=== PATIENT | female | born 1980 | race Caucasian/White ===

== ENCOUNTER 2018-04-13 08:08 | Emergency (ER) | payer BC, OTHER ==
[~2018-04-13] VITALS: Ht 160 cm; Wt 65.8 kg
[~2018-04-13 08:08] MED LIST: CIPROFLOXACIN500 MG PO; VICODIN ES 7501 TAB PO
[2018-04-13 08:09] VITALS: BP 115/76
[2018-04-13] MEDS ORDERED: ZITHROMAX250 MG PO (08:35)
== END 2018-04-13 08:38 | disposition home or self-care (01) ==
LOC: ED 08:08
DX: J02.9 Acute pharyngitis, unspecified (principal); R51 Headache; Z88.6 Allergy status to analgesic agent; Z88.1 Allergy status to other antibiotic agents